=== PATIENT | female | born 1930 | race Caucasian/White ===

== ENCOUNTER 2016-11-13 10:14 | Emergency (ER) | payer OTHER, MEDICARE ==
[~2016-11-13] VITALS: Ht 157.5 cm; Wt 64.7 kg
[~2016-11-13 10:14] MED LIST: ONDA4TAB10 SL; TAMS0.4C38 PO
[2016-11-13 10:23] VITALS: Ht 157.5 cm; Wt 64.7 kg
[2016-11-13] MEDS ORDERED: ONDANSETRON INJ 2 MG/ML 2 ML VIAL IV STA (11:18)
[2016-11-13] MEDS ORDERED: SODIUM CHLORIDE 0.9% 1000ML 1,000 ML IV STA (11:18)
[2016-11-13] MEDS ORDERED: FENTANYL CITRATE INJ 50 MCG/1 ML 2 ML VIAL IV STA (11:18)
--- NOTE | 2016-11-13 11:21 | EMERGENCY ROOM VISIT NOTE ---
History Report prepared by Juanita: Tonya Medina Under the Supervision of: Dr. Denisa Meyer M.D. First contact with patient: 11:10 Chief Complaint: UNABLE TO VOID Stated Complaint: UNABLE TO URINATE Nursing Triage Summary: pt states she was seen in the ER yesterday and had IV fluids. States she does not feel the urge to urinate but feels she should be urinating more since yesterday. Bladder scanned for 50 ml and 46 ml. History of Present Illness The patient is a 86 year old female who presents to the Emergency Room with complaints of constant difficulty urinating beginning yesterday. The patient states that she was seen here yesterday and was diagnosed with 2 right sided kidney stones. She reports that since she left the ED she has not been able to urinate and has only had about 1 drop of urine. She complains of dysuria and right sided flank pain. She denies any fever. The patient rates her pain as a 5/ 10 in severity. She notes that yesterday her pain was a 15/10 so it has gotten better. She reports that she drinks a lot of water and is concerned that she has not been urinating. The patient notes that she has not had a bowel movement today but does not feel like she needs to go. Source of History: patient Onset: yesterday Position: other (urinary) Symptom Intensity: 5/10 Quality: other (difficulty) Timing: constant Modifying Factors (Worsening): urination Associated Symptoms: No fevers Note: She complains of dysuria and right flank pain. Review of Systems See HPI for pertinent positives & negatives. A total of 10 systems reviewed and were otherwise negative. Past Medical & Surgical Medical Problems: (1) Bronchitis (2) Dislocation of PIP joint of finger (3) Esophageal Reflux (4) Hyperlipidemia Nec/Nos (5) Hypertension Nos (6) Kidney stones (7) Osteoporosis Nos (8) Pulmonary embolism Surgical Problems: (1) S/P hysterectomy (2) S/P lumbar fusion Family History Stroke Social History Smoking Status: Never Smoker Alcohol Use: none Drug Use: none Marital Status: Occupation Status: employed Current/Historical Medications Scheduled Ondasetron Odt (Zofran Odt), 4 MG SL Q6H Tamsulosin Hcl (Flomax), 0.4 MG PO DAILY Scheduled PRN Tramadol (Ultram), 1 TABS PO Q6 PRN for Pain Allergies Coded Allergies: Morphine (Verified Adverse Reaction, Mild, NAUSEA; HAS TOLERATED SOME DOSES IN RECENT PAST, 11/13/16) Physical Exam Vital Signs Date Time Temp Pulse Resp B/P (MAP) Pulse Ox O2 Delivery O2 Flow Rate FiO2 11/13/16 16:21 36.5 72 16 145/72 98 11/13/16 13:34 72 16 145/72 98 Room Air 11/13/16 12:22 77 11/13/16 12:14 78 16 152/69 98 Room Air 11/13/16 10:23 36.5 73 20 154/79 95 Room Air Physical Exam Vital signs reviewed. General: Well-appearing, in no significant distress. HEENT: No scleral icterus, PERRLA, neck supple. Atraumatic. Cardiovascular: Regular rate and rhythm, no extra sounds. Pulmonary: Clear to auscultation bilaterally, normal work of breathing. Abdomen: Soft, nontender, nondistended, positive bowel sounds. Musculoskeletal: Atraumatic, no peripheral edema. Neurologic: Patient awake alert and oriented x 3 Skin: Warm, dry, no rash Medical Decision & Procedures ER Provider Diagnostic Interpretation: ULTRASOUND KIDNEYS AND BLADDER CLINICAL HISTORY: Nephrolithiasis. Right ureteral stone. COMPARISON STUDY: Abdominal CT dated 11/12/2016. TECHNIQUE: Real-time, grayscale, and color flow sonography of the kidneys and bladder is performed. Images are reviewed in the transverse and longitudinal planes. FINDINGS: Kidneys: The kidneys are atrophic. The right kidney measures 10.4 cm in length and the left kidney measures 10.3 cm in length. There is mild right hydronephrosis. This is secondary to a known obstructing right ureteral calculus. There is fullness of the left renal collecting system with no left-sided hydronephrosis. Additional nonobstructing calculus is suggested in the right lower pole. There is no sonographic evidence of contour deforming renal mass lesion. No perinephric fluid is identified. Bladder: The partially decompressed bladder is grossly unremarkable. A left ureteral jet was seen. IMPRESSION: 1. The kidneys are atrophic. 2. There is mild right hydronephrosis secondary to a known obstructing ureteral calculus. This was not seen by ultrasound but was identified on yesterday's abdominal CT. 3. There is mild fullness of the left renal collecting system with no left-sided hydronephrosis. 4. An additional nonobstructing calculus is noted in the right kidney. 5. The bladder was partially decompressed and grossly normal. A left ureteral jet was seen. Electronically signed by: Reid Salinas M.D. 11/13/2016 3:34 PM Dictated Date/Time: 11/13/2016 3:31 PM Laboratory Results 11/13/16 12:25 Red Blood Count 4.99, Mean Corpuscular Volume 89.8, Mean Corpuscular Hemoglobin 28.9, Mean Corpuscular Hemoglobin Concent 32.1, Mean Platelet Volume 10.6, Neutrophils (%) (Auto) 73.7, Lymphocytes (%) (Auto) 16.9, Monocytes (%) (Auto) 7.0, Eosinophils (%) (Auto) 2.2, Basophils (%) (Auto) 0.1, Neutrophils # (Auto) 5.27, Lymphocytes # (Auto) 1.21, Monocytes # (Auto) 0.50, Eosinophils # (Auto) 0.16, Basophils # (Auto) 0.01 11/13/16 12:25 Test 11/13/16 12:25 11/13/16 12:30 White Blood Count 7.16 K/uL (4.8-10.8) Red Blood Count 4.99 M/uL (4.2-5.4) Hemoglobin 14.4 g/dL (12.0-16.0) Hematocrit 44.8 % (37-47) Mean Corpuscular Volume 89.8 fL (80-100) Mean Corpuscular Hemoglobin 28.9 pg (25-34) Mean Corpuscular Hemoglobin Concent 32.1 g/dl (32-36) Platelet Count 120 K/uL (130-400) Mean Platelet Volume 10.6 fL (7.4-10.4) Neutrophils (%) (Auto) 73.7 % Lymphocytes (%) (Auto) 16.9 % Monocytes (%) (Auto) 7.0 % Eosinophils (%) (Auto) 2.2 % Basophils (%) (Auto) 0.1 % Neutrophils # (Auto) 5.27 K/uL (1.4-6.5) Lymphocytes # (Auto) 1.21 K/uL (1.2-3.4) Monocytes # (Auto) 0.50 K/uL (0.11-0.59) Eosinophils # (Auto) 0.16 K/uL (0-0.5) Basophils # (Auto) 0.01 K/uL (0-0.2) RDW Standard Deviation 44.7 fL (36.4-46.3) RDW Coefficient of Variation 13.6 % (11.5-14.5) Immature Granulocyte % (Auto) 0.1 % Immature Granulocyte # (Auto) 0.01 K/uL (0.00-0.02) Anion Gap 9.0 mmol/L (3-11) Est Creatinine Clear Calc Drug Dose 21.4 ml/min Estimated GFR () 31.3 Estimated GFR (Non- 27.0 BUN/Creatinine Ratio 11.7 (10-20) Calcium Level 8.1 mg/dl (8.5-10.1) Total Bilirubin 0.5 mg/dl (0.2-1) Direct Bilirubin 0.1 mg/dl (0-0.2) Aspartate Amino Transf (AST/SGOT) 13 U/L (15-37) Alanine Aminotransferase (ALT/SGPT) 17 U/L (12-78) Alkaline Phosphatase 60 U/L (45-117) Total Protein 5.8 gm/dl (6.4-8.2) Albumin 3.2 gm/dl (3.4-5.0) Urine Color DK YELLOW Urine Appearance CLEAR (CLEAR) Urine pH 5.0 (4.5-7.5) Urine Specific [place] 1.033 (1.000-1.030) Urine Protein NEG (NEG) Urine Glucose (UA) TRACE (NEG) Urine Ketones TRACE (NEG) Urine Occult Blood NEG (NEG) Urine Nitrite NEG (NEG) Urine Bilirubin NEG (NEG) Urine Urobilinogen NEG (NEG) Urine Leukocyte Esterase NEG (NEG) Laboratory results per my review. Medications Administered Medications (Trade) Dose Ordered Sig/Sophia Route Start Time Stop Time Status Last Admin Dose Admin Sodium Chloride 1,000 ml @ 125 mls/hr Q8H STAT IV 11/13/16 11:18 11/13/16 16:30 DC 11/13/16 12:18 125 MLS/HR ED Course 1110: Past medical records reviewed. The patient was evaluated in room A4. A complete history and physical examination was performed. 1118: Zofran Inj 4mg IV, Fentanyl Inj 50mg IV, Sodium Chloride 1000 ml @ 125 mls /hr IV. 1545: I spoke to Mariia Schultz and updated her on the patients case. 1550: I reevaluated and updated the patient 1600: Upon reevaluation, the patient appeared to have improvement of her symptoms. I discussed findings with the patient. She verbalized agreement of the treatment plan. The patient was discharged home. Medical Decision Differential diagnosis includes urinary obstruction, dehydration, anxiety, UTI, bladder spasm. Medication Reconciliation: I attest that I have personally reviewed the patient' s current medication list. Blood Pressure Screening: Patient was found to have a slightly elevated blood pressure due to circumstances and age. I do not believe that the patient requires hypertension monitoring. This pt was evaluated and appeared to be in no distress. IV access was obtained and lab work was drawn. Pt was placed on the personnel monitor. IVF were initiated. Pt declined pain medications. CT results were reviewed. US retroperitoneum was performed and reveals mild right hydronephrosis, likely r/t a ureteral stone identified on yesterday's CT. Creatinine is bumped to 1.7. UA is negative for infection. Pt was informed of the findings and a call was placed to urology. JETT Murillo advises that pt can f/u as scheduled in 5 days. Pt was d/c with Rx for ultram. She will return to the ED for worsening of symptoms or any medical concerns. Consults Time Called: 1540 Consulting Physician: Mariia Schultz Returned Call: 1545 I spoke to Mariia Schultz and updated her on the patients case. Impression Primary Impression: Kidney stone Additional Impression: Dehydration Scribe Attestation The scribe's documentation has been prepared under my direction and personally reviewed by me in its entirety. I confirm that the note above accurately reflects all work, treatment, procedures, and medical decision making performed by me. Departure Information Dispostion Home / Self-Care Prescriptions Tramadol (Ultram) 50 Mg Tab 1 TABS PO Q6 Y for Pain, #20 TAB Prov: Denisa Meyer M.D. 11/13/16 Referrals Felix Malave D.O. (PCP) Forms HOME CARE DOCUMENTATION FORM, IMPORTANT VISIT INFORMATION, WORK / SCHOOL INSTRUCTIONS Patient Instructions My [facility] Additional Instructions Diagnosis: Dehydration, kidney stone Drink plenty of clear fluids. Tylenol 650 mg every 6 hours as needed for pain. Ultram 50 mg every 6 hours as needed for severe pain. Follow-up with JETT Murillo at Dr. Ross's office 11/18/16 at 1:40 Please return to the ER for worsening of symptoms or any medical concerns. Problem Qualifiers
[2016-11-13 12:42] LABS: BASO % 0.1 %; BASO ABS # 0.01 K/uL (0-0.2); COMPLETE YES; EOS % 2.2 %; HEMATOCRIT 44.8 % (37-47); IG% 0.1 %; LYMPH % 16.9 %; LYMPH ABS # 1.21 K/uL (1.2-3.4); MEAN CELL VOLUME 89.8 fL (80-100); MEAN CORPUSCULAR HEMOGLOBIN 28.9 pg (25-34); MEAN CORPUSCULAR HGB CONC 32.1 g/dl (32-36); MEAN PLATELET VOLUME 10.6 fL (7.4-10.4); NEUT % 73.7 %; PLATELET COUNT 120 K/uL (130-400); RED BLOOD COUNT 4.99 M/uL (4.2-5.4); WHITE BLOOD COUNT 7.16 K/uL (4.8-10.8)
[2016-11-13 12:54] LABS: URINE APPEARANCE CLEAR (CLEAR); URINE BILIRUBIN NEG (NEG); URINE COLOR DK YELLOW; URINE NITRITE NEG (NEG); URINE SPECIFIC GRAVITY 1.033 (1.000-1.030); UROBILINOGEN NEG (NEG); ZZURINE CULT IF INDIC CATH NO
[2016-11-13 12:57] LABS: MANUAL MICROSCOPIC REQUIRED? NO; REVIEW REQ? NO
[2016-11-13 13:03] LABS: BUN/CREATININE RATIO 11.7 (10-20); CALCIUM 8.1 mg/dl (8.5-10.1); CREATININE 1.7 mg/dl (0.60-1.20); POTASSIUM 3.8 mmol/L (3.5-5.1)
--- NOTE | 2016-11-13 15:36 | DIAGNOSTIC IMAGING REPORT ---
ULTRASOUND KIDNEYS AND BLADDER CLINICAL HISTORY: Nephrolithiasis. Right ureteral stone. COMPARISON STUDY: Abdominal CT dated 11/12/2016. TECHNIQUE: Real-time, grayscale, and color flow sonography of the kidneys and bladder is performed. Images are reviewed in the transverse and longitudinal planes. FINDINGS: Kidneys: The kidneys are atrophic. The right kidney measures 10.4 cm in length and the left kidney measures 10.3 cm in length. There is mild right hydronephrosis. This is secondary to a known obstructing right ureteral calculus. There is fullness of the left renal collecting system with no left-sided hydronephrosis. Additional nonobstructing calculus is suggested in the right lower pole. There is no sonographic evidence of contour deforming renal mass lesion. No perinephric fluid is identified. Bladder: The partially decompressed bladder is grossly unremarkable. A left ureteral jet was seen. IMPRESSION: 1. The kidneys are atrophic. 2. There is mild right hydronephrosis secondary to a known obstructing ureteral calculus. This was not seen by ultrasound but was identified on yesterday's abdominal CT. 3. There is mild fullness of the left renal collecting system with no left-sided hydronephrosis. 4. An additional nonobstructing calculus is noted in the right kidney. 5. The bladder was partially decompressed and grossly normal. A left ureteral jet was seen. Electronically signed by: Reid Salinas M.D. 11/13/2016 3:34 PM Dictated Date/Time: 11/13/2016 3:31 PM
[2016-11-13] MEDS ORDERED: TRAM-10 PO (15:57)
[2016-11-13 16:21] VITALS: BP 145/72; PULSE 72; TEMP 36.5; O2SAT 98
== END 2016-11-13 16:22 | disposition home or self-care (01) ==
LOC: C.EDB 10:16 → C.EDA 16:22
DX: N20.0 Calculus of kidney (principal); E86.0 Dehydration; I10 Essential (primary) hypertension; E78.5 Hyperlipidemia, unspecified; K21.9 Gastro-esophageal reflux disease without esophagitis; M81.0 Age-related osteoporosis without current pathological fracture; Z86.711 Personal history of pulmonary embolism; Z87.442 Personal history of urinary calculi; Z87.828 Personal history of other (healed) physical injury and trauma; Z98.1 Arthrodesis status; Z90.710 Acquired absence of both cervix and uterus; Z79.899 Other long term (current) drug therapy; Z88.5 Allergy status to narcotic agent; Z82.3 Family history of stroke

== ENCOUNTER → 2016-11-18 | Outpatient (CLI) | payer OTHER, MEDICARE ==
[~2016-11-18] MED LIST changes: +TRAM-10 PO
== END | disposition home or self-care (01) ==
LOC: C.LABSPEC 17:20
PROVIDERS: ATTEND Nurse Practitioner Adult Health
DX: N20.1 Calculus of ureter (principal)

== ENCOUNTER → 2016-11-25 | Outpatient (CLI) | payer OTHER, MEDICARE ==
[~2016-11-25] MED LIST changes: -TAMS0.4C38 PO
--- NOTE | 2016-11-25 08:41 | DIAGNOSTIC IMAGING REPORT ---
KUB CLINICAL HISTORY: N20.1 Ureteral [id number] nephrocalcinosis COMPARISON STUDY: 10/05/2015 CT 11/12/2016 FINDINGS: The soft tissues, psoas shadows, renal outlines and intestinal gas pattern appear normal. There is no evidence for bowel obstruction. No abnormal abdominal calcifications are seen. The proximal right ureteral calculi are not seen by plain film criteria. IMPRESSION: Negative study. Proximal right ureteral calculi previously described are not seen by plain film criteria. Electronically signed by: Jeff Aviles M.D. 11/25/2016 8:40 AM Dictated Date/Time: 11/25/2016 8:38 AM
[2016-11-25 09:53] LABS: BLOOD UREA NITROGEN 15 mg/dl (7-18); BUN/CREATININE RATIO 15.3 (10-20); CARBON DIOXIDE 28 mmol/L (21-32); CHLORIDE 106 mmol/L (98-107); CREATININE 0.98 mg/dl (0.60-1.20); GLUCOSE 226 mg/dl (70-99); POTASSIUM 3.6 mmol/L (3.5-5.1); SODIUM 143 mmol/L (136-145)
[2016-11-25 10:09] LABS: CALCIUM 8.3 mg/dl (8.5-10.1)
== END | disposition home or self-care (01) ==
LOC: C.RAD 08:00
PROVIDERS: ATTEND Nurse Practitioner Adult Health
DX: N20.1 Calculus of ureter (principal)

== ENCOUNTER → 2017-01-06 | Outpatient (CLI) | payer OTHER, MEDICARE ==
--- NOTE | 2017-01-06 10:00 | DIAGNOSTIC IMAGING REPORT ---
KUB CLINICAL HISTORY: Right-sided nephrolithiasis COMPARISON STUDY: 11/25/2016 FINDINGS: There is no pathologic bowel dilatation. No renal calculi are visualized on conventional radiographic imaging. Pelvic basin calcifications likely represent phleboliths. There are stable chronic deformities of the iliac bones. IMPRESSION: No urinary tract calculi are visualized on conventional radiographic imaging Electronically signed by: Tarun Card M.D. 01/06/2017 9:58 AM Dictated Date/Time: 01/06/2017 9:57 AM
== END | disposition home or self-care (01) ==
LOC: C.RAD 09:34
PROVIDERS: ATTEND Urology
DX: N20.1 Calculus of ureter (principal)

== ENCOUNTER → 2017-02-02 | Outpatient (CLI) | payer OTHER, MEDICARE ==
[2017-02-02 10:11] LABS: BLOOD UREA NITROGEN 14 mg/dl (7-18); BUN/CREATININE RATIO 14.3 (10-20); CALCIUM 8.4 mg/dl (8.5-10.1); CARBON DIOXIDE 28 mmol/L (21-32); CHLORIDE 108 mmol/L (98-107); GLUCOSE 244 mg/dl (70-99); SODIUM 142 mmol/L (136-145)
== END | disposition home or self-care (01) ==
LOC: C.LAB 08:19
PROVIDERS: ATTEND Urology
DX: N20.1 Calculus of ureter (principal)

== ENCOUNTER → 2017-03-02 | Outpatient (CLI) | payer OTHER, MEDICARE ==
--- NOTE | 2017-03-02 14:14 | DIAGNOSTIC IMAGING REPORT ---
(RENAL)RETROPERITONEA COMP HISTORY: Nephrocalcinosis Z87.442 History of kidney [id number] Ureteral stone latex all COMPARISON: 11/13/2016 FINDINGS: Right kidney: Improved from the prior exam. No evidence for hydronephrosis. Maximum linear dimension 9.9 cm. 4 mm lower pole nonobstructing calcification. Normal corticomedullary differentiation and cortical thickness. Left kidney: Maximum dimension 10.3 cm. No evidence for hydronephrosis. Several peripelvic cysts. 6 mm nonobstructing upper pole calcification Normal corticomedullary differentiation and cortical thickness. Bladder: No bladder wall thickening. The bilateral ureteral jets were identified. IMPRESSION: Improved from the prior CT study. No significant hydronephrosis at this time. Bilateral renal nonobstructing calcifications. Several renal left peripelvic cysts unchanged from the prior exam.. The above report was generated using voice recognition software. It may contain grammatical, syntax or spelling errors. Electronically signed by: Jeff Aviles M.D. 03/02/2017 2:13 PM Dictated Date/Time: 03/02/2017 2:08 PM
== END | disposition home or self-care (01) ==
LOC: C.ULTR 13:33
PROVIDERS: ATTEND Urology
DX: N20.1 Calculus of ureter (principal)

== ENCOUNTER → 2017-12-29 | Outpatient (CLI) | payer OTHER, MEDICARE ==
[~2017-12-29] MED LIST changes: +ALLO100T PO; +CIPR-304 PO; -ONDA4TAB10 SL; +OXYC-57 PO; +PHEN-876 PO; +POTATAB2 PO; +TAMS0.4C38 PO; -TRAM-10 PO
--- NOTE | 2017-12-29 12:58 | DIAGNOSTIC IMAGING REPORT ---
RENAL ULTRASOUND CLINICAL HISTORY: Uric acid nephrolithiasis. COMPARISON STUDY: CT of the abdomen and pelvis November 27, 2017 and KUB December 10, 2017. TECHNIQUE: Sonography of the kidneys and the urinary bladder was performed. FINDINGS: The right kidney measures 9.8 x 5.3 x 4.6 cm and the left measures 9.5 x 5.4 x 5.3 cm. There is no hydronephrosis. Left hydronephrosis shown on CT of November 27, 2017 has resolved. Left-sided parapelvic cysts are noted. Note is made of a 3 mm right renal calculus. Both ureteral jets were identified. No renal mass was identified. IMPRESSION: 1. Interval resolution of left hydronephrosis. 2. 3 mm right renal calculus. Electronically signed by: Carlito Puentes M.D. 12/29/2017 12:57 PM Dictated Date/Time: 12/29/2017 12:55 PM
== END | disposition home or self-care (01) ==
LOC: C.ULTR 12:11
PROVIDERS: ATTEND Urology
DX: N20.0 Calculus of kidney (principal)